=== PATIENT | male | born 1970 | race Caucasian/White ===

== ENCOUNTER → 2020-06-15 16:30 | Outpatient (BNVA) | payer MEDICARE, SELFPAY | PROVIDERS: Family Provider Electrodiagnostic Medicine; PCP Electrodiagnostic Medicine; Visit Provider Nurse Practitioner Family | DX: J06.9 Acute upper respiratory infection, unspecified (principal) | CPT/HCPCS: 87426 ==

== ENCOUNTER 2021-09-23 15:02 | Emergency (ER) | payer MEDICARE, SELFPAY ==
[2021-09-23 15:16] VITALS: BP 149/94; PULSE 78; RESP 18; TEMP 37; O2SAT 98; BMI 34.0
--- NOTE | 2021-09-23 15:31 | XRR_ITS ---
PROCEDURE INFORMATION: Exam: XR Chest Exam date and time: 09/23/2021 3:31 PM Age: 51 years old Clinical indication: Pain; Right-sided; Patient HX: C/O R sided cp today; Additional info: Chest pain TECHNIQUE: Imaging protocol: XR of the chest. Views: 1 view. COMPARISON: CR Chest 1 [place] [id number] 05/06/2015 11:07 PM FINDINGS: Lungs: The lungs are clear. Pleural spaces: Unremarkable. No pleural effusion. No pneumothorax. Heart/Mediastinum: Unremarkable. No cardiomegaly. Bones/joints: Unremarkable. XR/XR chest 1V portable [id number] IMPRESSION: No acute cardiopulmonary abnormality.
--- NOTE | 2021-09-23 15:31 | W.ED.CHESTPA ---
HPI - Chest Pain General: Chief Complaint: Chest Pain Stated Complaint: chest pain Time Seen by Provider: 09/23/21 15:18 History of Present Illness: 51-year-old male presents with right-sided chest pain. Patient reports that started last night. He reports is a constant discomfort under the right breast. Nothing seems to make it better or worse. It does not radiate. Patient presented to the ER today because he noticed his blood pressure was elevated especially the lower number. Patient is on lisinopril 10 mg. He took an additional 10 mg lisinopril at 1230. Course Vital Signs: Vital signs: Vital Signs Temperature 98.8 F 09/23/21 16:06 Pulse Rate 72 09/23/21 16:06 Respiratory Rate 20 H 09/23/21 16:06 Blood Pressure 143/83 09/23/21 16:06 Pulse Oximetry 95 09/23/21 16:06 MDM - Chest Pain Medical Decision Making Patient with negative troponin. Negative chest x-ray and no acute changes on his EKG. Patient symptoms are right sided, has been consistent for the last 15 hours or better. Very unlikely cardiac in nature. He is tender to palpation on the chest wall. Patient will be given anti-inflammatory prescription. At this time I do not feel patient has any reason for admission and further observation. Patient stable and will be discharged home. He should follow-up with his primary care provider or return to the ER as needed Lab Data : 09/23/21 15:36 09/23/21 15:36 Radiology Impressions Chest X-Ray 09/23/21 15:31 IMPRESSION: No acute cardiopulmonary abnormality. Laboratory Results WBC 6.4 10^3/uL (4.0-10.0) 09/23/21 15:36 RBC 5.08 10^6/uL (4.1-5.3) 09/23/21 15:36 Hgb 15.6 g/dL (11.7-16.6) 09/23/21 15:36 Hct 45.5 % (42.0-52.0) 09/23/21 15:36 MCV 89.6 fl (80-94) 09/23/21 15:36 MCH 30.7 pg (28.0-34.0) 09/23/21 15:36 MCHC 34.3 g/dL (30.0-36.0) 09/23/21 15:36 RDW 12.5 % (12.1-15.1) 09/23/21 15:36 Plt Count 171 10^3/cmm (130-400) 09/23/21 15:36 MPV 9.2 fL (7.4-10.4) 09/23/21 15:36 Neut % (Auto) 52.8 % 09/23/21 15:36 Lymph % (Auto) 33.4 % 09/23/21 15:36 [place] % (Auto) 6.4 % 09/23/21 15:36 Eos % (Auto) 6.3 % 09/23/21 15:36 Baso % (Auto) 0.8 % 09/23/21 15:36 Neut # (Auto) 3.38 10^3/uL (1.8-7.7) 09/23/21 15:36 Lymph # (Auto) 2.1 10^3/uL (0.8-4.8) 09/23/21 15:36 [place] # (Auto) 0.4 10^3/uL (0.2-0.9) 09/23/21 15:36 Eos # (Auto) 0.4 10^3/uL (0.0-0.8) 09/23/21 15:36 Baso # (Auto) 0.1 10^3/uL (0.0-0.1) 09/23/21 15:36 Nucleated RBC % (auto) 0 % 09/23/21 15:36 Nucleated RBCs # 0.0 /100WBC 09/23/21 15:36 Sodium 136 mmol/L (136-145) 09/23/21 15:36 Potassium 3.9 mmol/L (3.5-5.1) 09/23/21 15:36 Chloride 105 mmol/L (98-107) 09/23/21 15:36 Carbon Dioxide 22 mmol/L (22-29) 09/23/21 15:36 Anion Gap 12.9 (5-19) 09/23/21 15:36 BUN 7 mg/dL (6-20) 09/23/21 15:36 Creatinine 1.0 mg/dL (0.7-1.2) 09/23/21 15:36 GFR Calculation 78.8 mL/min (90-130) L 09/23/21 15:36 Glucose 90 mg/dL (65-115) 09/23/21 15:36 Calculated Osmolality 280 mOsm/kg (285-295) L 09/23/21 15:36 Calcium 7.7 mg/dL (8.5-10.5) L 09/23/21 15:36 Total Bilirubin 0.4 mg/dL (0.15-1.2) 09/23/21 15:36 AST 20 U/L (0-40) 09/23/21 15:36 ALT 26 U/L (0-41) 09/23/21 15:36 Alkaline Phosphatase 87 IU/L (40-130) 09/23/21 15:36 Troponin T Baseline 7 ng/L (0-15) 09/23/21 15:36 Total Protein 6.8 g/dL (6.6-8.7) 09/23/21 15:36 Albumin 3.9 g/dL (3.5-5.2) 09/23/21 15:36 Globulin 2.9 g/dL (1.3-4.6) 09/23/21 15:36 Urine Color Yellow (Yellow) 09/23/21 16:10 Urine Appearance Clear (CLEAR) 09/23/21 16:10 Urine pH 5 (5-7) 09/23/21 16:10 Ur Specific [place] Pool 1.010 (1.005-1.030) 09/23/21 16:10 Urine Protein Neg (Negative) 09/23/21 16:10 Urine Glucose (UA) Norm (Normal) 09/23/21 16:10 Urine Ketones Negative (Negative) 09/23/21 16:10 Urine Blood Neg (Negative) 09/23/21 16:10 Urine Nitrate Negative (Negative) 09/23/21 16:10 Urine Bilirubin Neg (Negative) 09/23/21 16:10 Urine Urobilinogen Norm mg/dL (Negative) 09/23/21 16:10 Ur Leukocyte Esterase Negative (Negative) 09/23/21 16:10 Imaging Data CXR: My impression: No acute findings Radiologist's impression: XR/XR chest 1V portable [id number] IMPRESSION:? No acute cardiopulmonary abnormality. EKG Data EKG 1: I personally reviewed and interpreted this EKG as follows: EKG interpretation date: 09/23/21 EKG interpretation time: 15:23 Ischemic changes: q waves (questionable II, AVF) Interpretation: NSR, HR 73, normal axis, no acute st changes, questionable q waves Computer generated interpretation: SINUS RHYTHM POSSIBLE INFERIOR MYOCARDIAL INFARCTION , OF INDETERMINATE AGE [30 ms Q WAVE IN II/aVF] Discharge Plan Discharge Patient Disposition: Home Clinical Impression: Atypical chest pain, Chest wall pain Condition: Stable Prescriptions: New naproxen [Naprosyn] 500 mg tablet 500 mg PO BID PRN (Reason: pain) Qty: 30 0RF Discharge Orders: Discharge ED (Routine); Ordered 09/23/21 Ordered By: Demian Hernández Referrals: Jaylan Duran DO [Primary Care Provider] - Discharge Diet: Usual diet Discharge Activity: Resume usual activity Patient Instructions: Opioid Safety, Chest Pain - Noncardiac, Chest Pain - Chest Wall Coding Level of Care Code ED Electronic Publications Specialist for Lissett Sue
[2021-09-23 15:43] LABS: Basophils # 0.1 10^3/uL (0.0-0.1); Basophils % 0.8 %; Eosinophils # 0.4 10^3/uL (0.0-0.8); Eosinophils % 6.3 %; Hematocrit 45.5 % (42.0-52.0); Hemoglobin 15.6 g/dL (11.7-16.6); Lymphocytes # 2.1 10^3/uL (0.8-4.8); Lymphocytes % 33.4 %; Mean Corpuscular HGB Conc 34.3 g/dL (30.0-36.0); Mean Corpuscular Hemoglobin 30.7 pg (28.0-34.0); Mean Corpuscular Volume 89.6 fl (80-94); Mean Platelet Volume 9.2 fL (7.4-10.4); Monocytes # 0.4 10^3/uL (0.2-0.9); Monocytes % 6.4 %; Neutrophils # 3.38 10^3/uL (1.8-7.7); Neutrophils % 52.8 %; Nucleated Red Blood Cells % 0 %; Platelet Count 171 10^3/cmm (130-400); Red Blood Count 5.08 10^6/uL (4.1-5.3); Red Cell Distribution Width 12.5 % (12.1-15.1); White Blood Count 6.4 10^3/uL (4.0-10.0)
[2021-09-23] MEDS: aspirin 81 mg Chew Tablet 324 MG PO (15:56)
[2021-09-23 16:04] LABS: Alanine Aminotransferase 26 U/L (0-41); Albumin Level 3.9 g/dL (3.5-5.2); Alkaline Phosphatase 87 IU/L (40-130); Aspartate Amino Transferase 20 U/L (0-40); Blood Urea Nitrogen 7 mg/dL (6-20); Calcium 7.7 mg/dL (8.5-10.5); Carbon Dioxide 22 mmol/L (22-29); Chloride 105 mmol/L (98-107); Globulin 2.9 g/dL (1.3-4.6); Glomerular Filtration Rate 78.8 mL/min (90-130); Glucose 90 mg/dL (65-115); Osmolality Calculated 280 mOsm/kg (285-295); Sodium 136 mmol/L (136-145); Total Bilirubin 0.4 mg/dL (0.15-1.2); Total Protein 6.8 g/dL (6.6-8.7)
[2021-09-23 16:06] VITALS: BP 143/83; PULSE 72; RESP 20; TEMP 37.1; O2SAT 95
[2021-09-23 16:06] LABS: Troponin(5th) Baseline 7 ng/L (0-15)
[2021-09-23 16:14] LABS: Anion Gap 12.9 (5-19); Potassium 3.9 mmol/L (3.5-5.1)
[2021-09-23 16:18] LABS: Add Urine Microscopic? NO; Charge for UA Resulting for Rev
[2021-09-23 16:22] LABS: Bilirubin Urine Neg (Negative); Blood Urine Neg (Negative); Glucose Urine UA Norm (Normal); Ketones Urine Negative (Negative); Leukocyte Esterase Urine Negative (Negative); Nitrate Urine Negative (Negative); Protein Urine Neg (Negative); Urine Appearance Clear (CLEAR); Urine Color Yellow (Yellow); Urobilinogen Urine Norm (Negative); pH Urine 5 (5-7)
[2021-09-23] MEDS: ketorolac 30 mg/mL INJ 15 MG IVP (16:59)
[2021-09-23 17:06] VITALS: BP 132/77; PULSE 62; RESP 18; TEMP 36.7; O2SAT 95
[2021-09-23 17:07] VITALS: BP 132/77; PULSE 62; RESP 18; TEMP 36.7; O2SAT 95
--- NOTE | 2021-09-23 21:31 | ECG_ITS ---
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 Measurements Intervals [place] Rate: 73 P: 25 ID: 139 QRS: 24 QRSD: 98 T: -4 QT: 345 QTc: 382 Interpretive Statements SINUS RHYTHM POSSIBLE INFERIOR MYOCARDIAL INFARCTION , OF INDETERMINATE AGE [30 ms Q WAVE IN II/aVF] Compared to ECG 05/06/2015 23:24:53 Myocardial infarct finding now present Electronically Signed On 09-24-2021 15:54:40 CDT by Ervin Keller M.D. [id number]
== END 2021-09-23 17:05 | disposition home or self-care (01) ==
PROVIDERS: Emergency Provider Student in an Organized Health Care Education/Training Program; PCP Electrodiagnostic Medicine
DX: R07.89 Other chest pain (principal)
CPT/HCPCS: 71045; 80053; 81003; 84484; 85025; 93005; 96374; 99283; J1885

== ENCOUNTER 2022-05-23 06:56 | Outpatient (CLI) | payer MEDICARE, SELFPAY ==
--- NOTE | 2022-05-23 | MR_ITS ---
WS: [id number] MRI LUMBAR SPINE NONCONTRAST TECHNIQUE: Sagittal T1, T2 and STIR imaging. Axial T1 and T2 imaging. CLINICAL INFORMATION: pain COMPARISON: None. FINDINGS: Normal lumbar alignment. No acute compression. No high-grade central canal stenosis. Postoperative ch anges RIGHT hemilaminectomy. L1-L2: Mild RIGHT and no significant LEFT foraminal narrowing. Mild facet arthropathy. L2-L3: No significant disc bulging. Mild RIGHT and no significant LEFT foraminal narrowing. Mild face t arthropathy. L3-L4: Mild disc bulging. RIGHT eccentric disc bulging with mild RIGHT and no significant LEFT forami nal narrowing. Moderate facet arthropathy. Spinal canal is patent. L4-L5: Mild annular bulging with narrowing of the subarticular recess bilaterally. Mild RIGHT and no significant LEFT foraminal narrowing. Moderate facet arthropathy. L5-S1: Postoperative RIGHT hemilaminectomy. Moderate facet arthropathy. Spinal canal is patent. Mild RIGHT greater than LEFT foraminal narrowing due to eccentric disc bulging with osteophytic ridging. Visualized pelvic bony structures: Normal. Paravertebral soft tissues: Normal. MR/MR lumbar spine wo con* [id number] IMPRESSION: 1. Prior postoperative changes RIGHT L5-S1 hemilaminectomy. Spinal canal is pa tent. Mild RIGHT greater than LEFT L5-S1 foraminal narrowing. 2. Mild RIGHT L2-L3, RIGHT L3-L4, RIGHT L4-L5 foraminal narrowing. 3. Annular bulging L4-L5 with slight impingement traversing L5 nerve roots theresa aterally. 4. Moderate facet arthropathy L3-L5.
== END 2022-05-23 06:57 | disposition home or self-care (01) ==
LOC: RAD 06:57
PROVIDERS: PCP Electrodiagnostic Medicine; Visit Provider Electrodiagnostic Medicine
DX: M51.06 Intervertebral disc disorders with myelopathy, lumbar region (principal); Z98.1 Arthrodesis status; M47.816 Spondylosis without myelopathy or radiculopathy, lumbar region
CPT/HCPCS: 72148

== ENCOUNTER 2022-09-25 22:04 | Emergency (ER) | payer MEDICARE, SELFPAY ==
[2022-09-25 22:05] VITALS: BMI 35.4
--- NOTE | 2022-09-25 22:05 | W.ED.CHESTPA ---
HPI - Chest Pain General: Chief Complaint: Chest Pain Stated Complaint: CP Time Seen by Provider: 09/25/22 22:04 History of Present Illness: Mr. Mcdonnell is a 52-year-old gentleman with history of tobaccoism presenting to the emergency department for chest pain. He reports onset without specific known provoking event over the weekend that has been intermittent. Sharp deep right anterior chest pain associated with shortness of breath and lightheadedness/dizziness. He denies other typical associated cardiac features. Most recent episode started at approximately 9 PM at rest. Intensity is moderate to severe. Course has persisted. No other specific changes in health, exacerbating, or alleviating factors identified. Onset (ago): hour(s) Timing of current episode: constant Prior episodes: Yes Onset: during rest Pain location: right chest Severity: moderate Quality: sharp Relieving factors: nothing Exacerbating factors: exertion and inspiration Associated symptoms: Reports dyspnea Review of Systems General: Reports: 10 or more systems reviewed and unremarkable except in HPI and below Resp: Reports: dyspnea [facility] ED PFSH: Medical History (Updated 09/25/22 @ 23:44 by Hernandez Mitchell MD) No significant past medical history Surgical History (Updated 09/25/22 @ 22:33 by Hernandez Mitchell MD) History of back surgery Social History (Updated 09/25/22 @ 22:33 by Hernandez Mitchell MD) Smoking and tobacco status: current every day smoker Physical Exam Const: COMMON NORMALS: alert GENERAL APPEARANCE: cooperative and well developed HENMT: COMMON NORMALS: normocephalic and atraumatic HEAD & SCALP: normocephalic and atraumatic Eye: COMMON NORMALS: conjunctivae normal CONJUNCTIVA: Yes conjunctivae normal SCLERA: sclerae normal Neck/C-Spine: COMMON NORMALS: supple GENERAL: Yes trachea midline Resp: COMMON NORMALS: clear to auscultation bilaterally EFFORT & INSPECTION: Yes able to speak in complete sentences AUSCULTATION: clear to auscultation bilaterally Cardio: COMMON NORMALS: regular rate and regular rhythm RATE: regular rate RHYTHM: regular rhythm GI: COMMON NORMALS: Soft to palpation PALPATION: Yes Soft to palpation and No Tenderness to palpation present (GI) Extremity: GENERAL: Yes normal exam except as noted and No edema Neuro: COMMON NORMALS: moves all extremities SENSORIUM/ORIENTATION: Yes alert and No Orientation impaired Psych: COMMON NORMALS: mental status grossly normal and Normal thought process present THOUGHT PROCESS: Normal thought process present Course Vital Signs: Vital signs: Vital Signs Temperature 98.9 F 09/25/22 22:09 Pulse Rate 63 09/25/22 23:44 Respiratory Rate 16 09/25/22 23:44 Blood Pressure 154/93 09/25/22 23:44 Pulse Oximetry 97 09/25/22 23:44 Oxygen Delivery Me thod 09/25/22 23:16 MDM - Chest Pain Medical Decision Making 52-year-old gentleman with history of tobaccoism presenting to the emergency department for chest pain. He is at episodic though not classic chest pain over the past few days including most recent episode starting approximately 1 hour prior to arrival. Patient's story is concerning for a possible cardiac etiology in the absence of lung pathology. EKG demonstrates sinus rhythm with nonspecific ST segment abnormalities. [place] and intervals are normal. There is no STEMI. Labs notable for minimal leukocytosis, normal hemoglobin and platelet count. Metabolic panel without acute derangement to explain symptoms. D-dimer is negative. Initial troponin is negative however patient has had less than 6 hours of symptoms and therefore warrants a 2-hour delta measurement. Chest x-ray shows no lobar consolidation or pneumothorax. While awaiting 2-hour troponin draw time the patient's I guess became frustrated and has decided that they will take the patient to [place]. I spoke with the patient though his was not in the room at that time, I explained the current status of her evaluation including my believe for need for further cardiac evaluation. I certainly offered to keep the patient here for inpatient further testing and discussed risks of leaving. The patient is oriented to person, place, and time, has the capacity to make decisions regarding the medical care offered. The patient speaks coherently and exhibits no evidence of having an altered level of consciousness or alcohol or drug intoxication to a point that would impair judgment. The patient understands they are welcome to return to the hospital at any time to receive the recommended care or any other care at any time, regardless of their ability to pay for such care. Medical Records I reviewed the patient's medical records. Lab Data I reviewed the patient's lab results. 09/25/22 22:07 09/25/22 22:07 Radiology Impressions Chest X-Ray 09/25/22 22:18 IMPRESSION: No acute findings. Laboratory Results WBC 10.9 10^3/uL (4.0-10.0) H 09/25/22 22:07 RBC 5.28 10^6/uL (4.1-5.3) 09/25/22 22:07 Hgb 16.2 g/dL (11.7-16.6) 09/25/22 22:07 Hct 47.1 % (42.0-52.0) 09/25/22 22:07 MCV 89.2 fl (80-94) 09/25/22 22:07 MCH 30.7 pg (28.0-34.0) 09/25/22 22:07 MCHC 34.4 g/dL (30.0-36.0) 09/25/22 22:07 RDW 12.9 % (12.1-15.1) 09/25/22 22:07 Plt Count 231 10^3/cmm (130-400) 09/25/22 22:07 MPV 9.5 fL (7.4-10.4) 09/25/22 22:07 Neut % (Auto) 52.0 % 09/25/22 22:07 Lymph % (Auto) 37.8 % 09/25/22 22:07 [place] % (Auto) 3.8 % 09/25/22 22:07 Eos % (Auto) 4.9 % 09/25/22 22:07 Baso % (Auto) 1.0 % 09/25/22 22:07 Neut # (Auto) 5.68 10^3/uL (1.8-7.7) 09/25/22 22:07 Lymph # (Auto) 4.1 10^3/uL (0.8-4.8) 09/25/22 22:07 [place] # (Auto) 0.4 10^3/uL (0.2-0.9) 09/25/22 22:07 Eos # (Auto) 0.5 10^3/uL (0.0-0.8) 09/25/22 22:07 Baso # (Auto) 0.1 10^3/uL (0.0-0.1) 09/25/22 22:07 Nucleated RBC % (auto) 0 % 09/25/22 22:07 Nucleated RBCs # 0.0 /100WBC 09/25/22 22:07 D-Dimer 0.34 ug/mIFEU (0-0.59) 09/25/22 22:07 Sodium 140 mmol/L (136-145) 09/25/22 22:07 Potassium 3.8 mmol/L (3.5-5.1) 09/25/22 22:07 Chloride 103 mmol/L (98-107) 09/25/22 22:07 Carbon Dioxide 24 mmol/L (22-29) 09/25/22 22:07 Anion Gap 16.8 (5-19) 09/25/22 22:07 BUN 6 mg/dL (6-20) 09/25/22 22:07 Creatinine 1.0 mg/dL (0.7-1.2) 09/25/22 22:07 GFR Calculation 78.5 mL/min (90-130) L 09/25/22 22:07 Glucose 114 mg/dL (65-115) 09/25/22 22:07 Calculated Osmolality 288 mOsm/kg (285-295) 09/25/22 22:07 Calcium 9.2 mg/dL (8.5-10.5) 09/25/22 22:07 Total Bilirubin 0.5 mg/dL (0.15-1.2) 09/25/22 22:07 AST 18 U/L (0-40) 09/25/22 22:07 ALT 24 U/L (0-41) 09/25/22 22:07 Alkaline Phosphatase 88 U/L (40-130) 09/25/22 22:07 Troponin T Baseline 10 ng/L (0-15) 09/25/22 22:07 NT-Pro-B Natriuret Pep 36 pg/mL (0-125) 09/25/22 22:07 Total Protein 7.4 g/dL (6.6-8.7) 09/25/22 22:07 Albumin 4.1 g/dL (3.5-5.2) 09/25/22 22:07 Globulin 3.3 g/dL (1.3-4.6) 09/25/22 22:07 Lipase 24 U/L (13-60) 09/25/22 22:07 Discharge Plan Discharge Patient Disposition: Left Against Medical Advice Clinical Impression: Chest pain Condition: Stable Prescriptions: No Action Naprosyn 500 mg tablet 500 mg PO BID PRN (Reason: pain) Qty: 30 0RF Referrals: Jaylan Duran DO [Primary Care Provider] - Coding Level of Care Code ED Composing Room Supervisor for Lissett Sue
[2022-09-25 22:09] VITALS: BP 134/99; PULSE 67; RESP 16; TEMP 37.2; O2SAT 96
--- NOTE | 2022-09-25 22:10 | ECG_ITS ---
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
[2022-09-25 22:14] VITALS: O2SAT 96
--- NOTE | 2022-09-25 22:14 | PC.NURSE ---
allergy band placed on pt at this time
--- NOTE | 2022-09-25 22:15 | PC.NURSE ---
Pt on bedside ekg monitor tech
--- NOTE | 2022-09-25 22:18 | XRR_ITS ---
PROCEDURE INFORMATION: Exam: XR Chest Exam date and time: 09/25/2022 10:26 PM Age: 52 years old Clinical indication: Pain; Chest pressure; Additional info: Cp TECHNIQUE: Imaging protocol: Radiologic exam of the chest. Views: 1 view. COMPARISON: CR XR chest 1V portable [id number] 09/23/2021 3:37 PM FINDINGS: Lungs: Unremarkable. No consolidation. Pleural spaces: Unremarkable. No pleural effusion. No pneumothorax. Heart/Mediastinum: Unremarkable. No cardiomegaly. Bones/joints: Unremarkable. XR/XR chest 1V portable [id number] IMPRESSION: No acute findings.
[2022-09-25 22:23] LABS: Basophils # 0.1 10^3/uL (0.0-0.1); Eosinophils # 0.5 10^3/uL (0.0-0.8); Eosinophils % 4.9 %; Hematocrit 47.1 % (42.0-52.0); Hemoglobin 16.2 g/dL (11.7-16.6); Lymphocytes # 4.1 10^3/uL (0.8-4.8); Lymphocytes % 37.8 %; Mean Corpuscular HGB Conc 34.4 g/dL (30.0-36.0); Mean Corpuscular Hemoglobin 30.7 pg (28.0-34.0); Mean Corpuscular Volume 89.2 fl (80-94); Mean Platelet Volume 9.5 fL (7.4-10.4); Monocytes # 0.4 10^3/uL (0.2-0.9); Monocytes % 3.8 %; Neutrophils # 5.68 10^3/uL (1.8-7.7); Nucleated Red Blood Cells % 0 %; Platelet Count 231 10^3/cmm (130-400); Red Blood Count 5.28 10^6/uL (4.1-5.3); Red Cell Distribution Width 12.9 % (12.1-15.1); White Blood Count 10.9 10^3/uL (4.0-10.0)
[2022-09-25 22:39] VITALS: BP 140/83; PULSE 63; RESP 16; O2SAT 95
[2022-09-25 22:39] LABS: D Dimer 0.34 ug/mIFEU (0-0.59)
[2022-09-25 22:43] LABS: Troponin(5th) Baseline 10 ng/L (0-15)
[2022-09-25 22:53] LABS: Alanine Aminotransferase 24 U/L (0-41); Albumin Level 4.1 g/dL (3.5-5.2); Alkaline Phosphatase 88 U/L (40-130); Anion Gap 16.8 (5-19); Aspartate Amino Transferase 18 U/L (0-40); Blood Urea Nitrogen 6 mg/dL (6-20); Calcium 9.2 mg/dL (8.5-10.5); Carbon Dioxide 24 mmol/L (22-29); Chloride 103 mmol/L (98-107); Creatinine Clr Calc Pharmacy 105.0681; Globulin 3.3 g/dL (1.3-4.6); Glomerular Filtration Rate 78.5 mL/min (90-130); Glucose 114 mg/dL (65-115); Lipase 24 U/L (13-60); NT Pro B Type Natriuretic Pept 36 pg/mL (0-125); Osmolality Calculated 288 mOsm/kg (285-295); Potassium 3.8 mmol/L (3.5-5.1); Sodium 140 mmol/L (136-145); Total Bilirubin 0.5 mg/dL (0.15-1.2); Total Protein 7.4 g/dL (6.6-8.7)
[2022-09-25 23:00] VITALS: BP 141/95
--- NOTE | 2022-09-25 23:14 | PC.NURSE ---
REPORT TAKEN FROM . PT RESTING IN BED ON PHONE. PT RATES PAIN 4/10 IN CHEST. 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 PT DENIES FURTHER NEEDS AT THIS TIME.
[2022-09-25 23:16] VITALS: PULSE 58; RESP 18; O2SAT 96
--- NOTE | 2022-09-25 23:30 | PC.NURSE ---
THIS NURSE PRESENT AT BEDSIDE WITH VOLODYMYR STEPHEN. PT PRESENT AND ON SPEAKER PHONE. HAD QUESTIONS REGARDING PATIENT CARE. VOLODYMYR STEPHEN SPOKE WITH OF PATIENT ON SPEAKER WITH PT AND THIS NURSE PRESENT. PT WAS EDUCATED ON PATIENT CARE, DISEASE PROCESS, AND HAD ALL QUESTIONS ANSWERED. PT STATED SHE DID NOT LIKE THIS HOSPITAL AT ALL.
--- NOTE | 2022-09-25 23:30 | PC.NURSE ---
called to room secondary to spouse concerns about delays in care ( was on speaker phone and not in the facility) and why an opiod was ordered for a patient with chest pain. Spouse was very confrontational while this RN attempted to explain the care provided. concerned that no xray had been done. With pt permission, I explained in detail all the care that had been provided and chest pain protocol we were following. I informed her the plan of care moving forward. I answered questions, but spouse continued to be confrontational stating the only way he is leaving there is in a pine box and I do not like that hospital at all'. Pt is extremely apologetic for behavior of spouse and expresses understanding of care provided.
--- NOTE | 2022-09-25 23:40 | PC.NURSE ---
RN called to room by PT. Pt states he is going to leave AMA so can take him to [place]. MD notified. MD and this RN at bedside. explained to pt the risks of leaving and his concern for pt having chest pain. Explained to pt that he wanted to do a second cardiac enzyme and then admit for possible stress test tomorrow. Pt verbalized understanding and wished to leave AMA. AMA form signed. IV taken out. Pt escorted to out of ER by this RN. Pt was ambulatory and in NAD.
[2022-09-25 23:44] VITALS: BP 154/93; PULSE 63; RESP 16; O2SAT 97
== END 2022-09-25 23:44 | disposition left against medical advice (07) ==
PROVIDERS: Emergency Provider Emergency Medicine; PCP Electrodiagnostic Medicine
DX: R07.9 Chest pain, unspecified (principal); Z53.21 Procedure and treatment not carried out due to patient leaving prior to being seen by health care provider; D72.829 Elevated white blood cell count, unspecified; F17.210 Nicotine dependence, cigarettes, uncomplicated
CPT/HCPCS: 71045; 80053; 83690; 83880; 84484; 85025; 85378; 93005; 99285

== ENCOUNTER 2022-10-26 08:07 | Outpatient (CLI) | payer MEDICARE, SELFPAY ==
[2022-10-26 08:53] VITALS: BMI 35.4
--- NOTE | 2022-10-26 08:56 | NMCV_ITS ---
NM tony perf SPECT r/s* [id number] Dhaval Mcdonnell Age: 52 Gender: M : 1970 Exam Date: 10/26/2022 08:56 Ordering Phys: Jaylan Duran DO Technologist: GUILLERMINA Schrader Exam Location: [facility] Indications: Chest pain STRESS TEST Please see separate stress [facility] for full findings IMAGE PROTOCOL Rest/Stress 1 Lexiscan Day Radiopharmaceutical Dose (mCi) Administration Site Administered by Rest: Tc-99m 10.6 IV GUILLERMINA Schrader Sestamibi Stress:Tc-99m 33.0 IV GUILLERMINA Schrader Sestamibi Rest: 26-Oct-2022 60 Discovery 630 Stress: 26-Oct-2022 30 Discovery 630 0.4mg Lexiscan. Images obtained in supine and prone position. SPECT RESULTS Technical Quality: Excellent Raw Data Analysis: Normal Image Corrections: No attenuation or motion correction applied Summed Stress Score: 0 Summed Rest Score: 0 Summed Difference Score: 0 PERFUSION FINDINGS SPECT images demonstrate homogeneous tracer distribution throughout the myocardium. FUNCTIONAL RESULTS (calculated via Gated SPECT) Stress Image LV EF (%): 72 Stress EDV (mL):130 TID: 1.14 Stress ESV (mL):37 FUNCTIONAL FINDINGS: There is normal left ventricular systolic function. IMPRESSIONS 1. Normal myocardial perfusion imaging with no evidence of ischemia 2. LV systolic function is normal Ervin Keller MD (Electronically Signed) Final Date: 26 October 2022 12:44 S
--- NOTE | 2022-10-26 08:56 | ECG_ITS ---
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 Interpretive Statements NAME OF STUDY: LEXISCAN SESTAMIBI STRESS TEST INDICATION: [Chest Pain, ] Procedure: At the baseline, the blood pressure was 148/102 mmHg with a heart rate of 51 bpm. The electrocardiogram showed normal sinus bradycardia, normal axis with normal ST and T's. The Lexiscan was infused over a period of 20 seconds. A total of 0.4 mg of Lexiscan was infused. The stress phase was continued for a total of 5 minutes. Heart rate was at the end of stress phase was 68 bpm and a blood pressure of 137/90 mmHg. The EKG at the peak infusion revealed normal sinus rhythm with no significant ST-T wave changes. Sestamibi was injected 20 seconds after the Lexiscan infusion. Blood pressure at the end of recovery phase was 152/78 mmHg with a heart rate of 62 bpm. Conclusion: 1. Normal EKG response to Lexiscan infusion 2. No Lexiscan induced chest pain or cardiac arrhythmia. 3. Normal blood pressure and heart rate response. 4. Sestamibi/sestamibi perfusion scan pending; see separate report. Electronically Signed On 10-27-2022 13:11:45 CDT by Ervin Keller M.D. [id number]
[2022-10-26] MEDS: regadenoson 0.4 Mg/5 ml Syringe IVP (09:56)
[2022-10-26 10:17] VITALS: BP 152/78; PULSE 62
== END 2022-10-26 08:08 | disposition home or self-care (01) ==
PROVIDERS: PCP Electrodiagnostic Medicine; Visit Provider Electrodiagnostic Medicine
DX: R07.9 Chest pain, unspecified (principal)
CPT/HCPCS: 36415; 78452; 93017; 96374; A9500; J2785